=== PATIENT | male | born 1975 | race Caucasian/White ===

== ENCOUNTER 2020-02-15 20:18 | Emergency (ER) | payer OTHER ==
[2020-02-15 20:39] LABS: BASOPHILS % (AUTO) 0.4 % (0.0-5.0); EOSINOPHILS % (AUTO) 0.2 % (0.0-8.0); HEMATOCRIT 45.6 % (42-54); LYMPHOCYTES % (AUTO) 12.8 % (21.0-51.0); MEAN CORPUSCULAR HEMOGLOBIN 29.2 pg (27.0-33.0); MEAN CORPUSCULAR HGB CONC 35.3 g/dL (32.0-36.0); MEAN CORPUSCULAR VOLUME 82.6 fL (79-99); MONOCYTES % (AUTO) 5.1 % (3.0-13.0); NEUTROPHILS % (AUTO) 81.3 % (40.0-77.0); PLATELET COUNT (AUTO) 206 K/uL (130-400); RED BLOOD CELL COUNT(AUTO) 5.52 MIL/uL (4.50-6.20); RED CELL DISTRIBUTION WIDTH 11.6 % (11.0-15.5); WHITE BLOOD COUNT (AUTO) 8.5 K/uL (4.8-10.8)
[2020-02-15] MEDS ORDERED: PROCHLORPERAZINE EDISYLATE 10 MG/2 ML VIAL ONE (20:55)
[2020-02-15] MEDS ORDERED: SODIUM CHLORIDE 0.9% 1000ML 1,000 ML IV ONE (20:55)
[2020-02-15] MEDS ORDERED: KETOROLAC TROMETHAMINE 30MG/ML ONE (20:55)
[2020-02-15 20:57] LABS: ALBUMIN 4.1 g/dL (3.5-5.0); BILIRUBIN,TOTAL 1.1 mg/dL (0.2-1.0); TOTAL PROTEIN, SERUM 7.8 g/dL (6.0-8.3)
== END 2020-02-15 22:42 | disposition home or self-care (01) ==
LOC: EDH 20:18
DX: G43.909 Migraine, unspecified, not intractable, without status migrainosus (principal); Z88.0 Allergy status to penicillin
CPT/HCPCS: 36415; 80053; 85025; 96374; 96375; 99284; J0780; J1885; J7030

== ENCOUNTER 2021-05-22 02:45 | Emergency (ER) | payer BC, OTHER ==
[~2021-05-22] VITALS: Ht 919.5 cm; Wt 131.5 kg
[2021-05-22 03:20] VITALS: BP 133/89
[2021-05-22] MEDS ORDERED: DEXAMETHASONE 10MG/ML 1ML VIAL 10 MG in 0.9% NACL 50ML 50 ML IV ONE (03:45)
[2021-05-22] MEDS ORDERED: LEVETIRACETAM 500 MG in 0.9%NACL 100ML 100 ML IV ONE (03:45)
[2021-05-22] MEDS ORDERED: DEXAMETHASONE SOD PHOSPHATE 10MG/ML 1ML VIAL ONE (03:49)
[2021-05-22] MEDS ORDERED: 0.9%NACL 100ML 100 ML ONE (03:50)
[2021-05-22] MEDS ORDERED: LEVETIRACETAM 500 MG/5 ML SD VIAL IV ONE (03:50)
[2021-05-22 04:18] LABS: HEMATOCRIT 42.2 % (42-54); MEAN CORPUSCULAR HGB CONC 33.6 g/dL (32.0-36.0); MEAN CORPUSCULAR VOLUME 86.1 fL (79-99); RED BLOOD CELL COUNT(AUTO) 4.9 MIL/uL (4.50-6.20); RED CELL DISTRIBUTION WIDTH 11.7 % (11.0-15.5); WHITE BLOOD COUNT (AUTO) 4.3 K/uL (4.8-10.8)
[2021-05-22 04:25] VITALS: BP 113/79
[2021-05-22 04:29] LABS: CREATININE 1.1 mg/dL (0.5-1.5); POTASSIUM 4.1 mmol/L (3.5-5.1)
[2021-05-22 04:34] LABS: BILIRUBIN,TOTAL 0.7 mg/dL (0.2-1.0); TOTAL PROTEIN, SERUM 7.2 g/dL (6.0-8.3)
[2021-05-22 05:00] LABS: PROTHROMBIN TIME 10.9 SEC (9.6-11.6)
[2021-05-22 05:01] LABS: PARTIAL THROMBOPLASTIN TIME 23.1 SEC (26.3-35.5)
[2021-05-22 05:44] VITALS: BP_SYST 105; BP_SYST 113; BP_DIAS 58; BP_DIAS 79
[2021-05-22 06:17] VITALS: BP 138/75
[2021-05-22 07:25] VITALS: BP 125/66
[2021-05-22] MEDS ORDERED: DEXA4TAB PO (07:25)
[2021-05-22] MEDS ORDERED: LEVE750T4 PO (07:25)
== END 2021-05-22 07:50 | disposition home or self-care (01) ==
LOC: EDH 03:25
DX: G40.89 Other seizures (principal); G93.6 Cerebral edema; E11.9 Type 2 diabetes mellitus without complications; Z88.0 Allergy status to penicillin; Z79.899 Other long term (current) drug therapy; Z98.890 Other specified postprocedural states
CPT/HCPCS: 36415; 70450; 80053; 85027; 85610; 85730; 96365; 96375; 99285; J1100; J1953